=== PATIENT | male | born 1985 | race Two or more races ===

== ENCOUNTER 2022-03-06 02:43 | Emergency (ER) | payer SELFPAY ==
[2022-03-06] MEDS ORDERED: Sodium Chloride 0.9% 10 ML Syringe FLUSH PRN (03:06)
[2022-03-06] MEDS ORDERED: Sodium Chloride 0.9% 1,000 ML IV SCH ×2 (03:15→07:00)
[2022-03-06] MEDS ORDERED: HYDROmorphone 0.5 MG/0.5 ML Syringe IVPUSH ONE (03:28)
[2022-03-06] MEDS ORDERED: Ondansetron 4 MG/2 ML SDV IVPUSH ONE (03:28)
[2022-03-06] MEDS ORDERED: Loperamide 2 MG Cap PO STA (03:32)
[2022-03-06] MEDS ORDERED: Magnesium Sulfate/Water 2 GM in Premix Bag 1 BAG IV ONE (04:01)
[2022-03-06] MEDS ORDERED: Iopamidol 612 MG/ML 100 ML Bottle IVPUSH ONE (04:03)
[2022-03-06 04:07] LABS: CORONAVIRUS COVID-19 NAA POSITIVE (NEGATIVE)
[2022-03-06] MEDS ORDERED: Sodium Chloride 0.9% 1,000 ML IV ONE (06:06)
[2022-03-06] MEDS ORDERED: Insulin Regular, Human 100 Units/ML 3 ML Vial SUBCUT STA (06:52)
== END 2022-03-06 08:04 | disposition home or self-care (01) ==
LOC: JD.ED 02:43
DX: U07.1 COVID-19 (principal); E87.1 Hypo-osmolality and hyponatremia; R74.02 Elevation of levels of lactic acid dehydrogenase [LDH]; R79.82 Elevated C-reactive protein (CRP); E11.9 Type 2 diabetes mellitus without complications; E66.9 Obesity, unspecified; Z68.36 Body mass index [BMI] 36.0-36.9, adult; Z87.891 Personal history of nicotine dependence; Z79.899 Other long term (current) drug therapy
CPT/HCPCS: 0240U; 36415; 71045; 74177; 80053; 81001; 82977; 83605; 83690; 83735; 85025; 85610; 85730; 86140; 87040; 87651; 96361; 96365; 96366; 96375; 99284; A9270; J1170; J2405; J3475; J3490; J7030; Q9967